=== PATIENT | female | born 1965 | race Caucasian/White ===

== ENCOUNTER 2018-12-16 09:19 | Day surgery (SDC) | payer OTHER ==
[~2018-12-16] VITALS: Ht 154.9 cm; Wt 63.9 kg
[2018-12-16 10:13] VITALS: Ht 154.9 cm; Wt 63.9 kg
[2018-12-16] MEDS ORDERED: CELEBREX (10:16)
[2018-12-16] MEDS ORDERED: ANXIETY MED (10:16)
[2018-12-16] MEDS ORDERED: GABAPENTIN (10:16)
[2018-12-16 10:27] VITALS: BP 119/58; PULSE 75; RESP 16
[2018-12-16] MEDS ORDERED: LIDOCAINE 4% SOLUTION 50 ML BTL ONE (10:33)
[2018-12-16] MEDS ORDERED: MIDAZOLAM 1 MG/ML 2 ML INJ ONE ×4 (11:26)
[2018-12-16] MEDS ORDERED: FENTAnyl 50 MCG/ML VIAL ONE (11:26)
[2018-12-16 11:38] VITALS: BP 107/64; PULSE 63; RESP 16
== END 2018-12-16 12:53 | disposition home or self-care (01) ==
LOC: GIL 09:19
PROVIDERS: ATTEND Internal Medicine Gastroenterology
DX: Z12.11 Encounter for screening for malignant neoplasm of colon (principal); K64.4 Residual hemorrhoidal skin tags; D12.0 Benign neoplasm of cecum; K29.50 Unspecified chronic gastritis without bleeding
CPT/HCPCS: 43239; 45385; 88305; 88312; J2250; J3010